=== PATIENT | female | born 2000 | race Hispanic/Latino ===

== ENCOUNTER 2023-05-01 09:31 | Day surgery (SDC) | payer OTHER ==
[2023-05-01] MEDS ORDERED: hydrALAZINE 20 MG/ML VIAL SLOW IVP PRN (10:24)
[2023-05-01] MEDS ORDERED: Lactated Ringer's 1,000 ML IV SCH (10:30)
[2023-05-01 11:02] VITALS: BMI 29.6
[2023-05-01 11:16] LABS: #Basophils 0.1 10x3/uL (0.0-0.2); #Eosinphils 0.1 10x3/uL (0.0-0.5); #Neutrophils 12.1 10x3/uL (1.5-8.4); %Basophils 0.4 % (0.0-2.0); %Eosinophils 0.5 % (0.0-6.0); %Lymphocytes 11.7 % (18.0-47.0); %Monocytes 6.6 % (0.0-10.0); Hematocrit 34.6 % (34.9-44.5); Hemoglobin 11.6 g/dL (12.0-15.5); Mean Corpuscular HGB CONC 33.5 g/dL (32.0-36.0); Mean Corpuscular Hemoglobin 31.6 pg (27.0-33.0); Mean Corpuscular Volume 94.3 fl (81.6-98.3); Mean Platelet Volume 11.6 fl (7.4-10.4); Platelet Count 245 10x3/uL (150-450); RBC Distribution Width 12.7 % (11.5-14.5); Red Blood Cell (RBC) Count 3.67 10x6/uL (3.90-5.03); White Blood Cell (WBC) Count 15.2 10x3/uL (3.5-10.5)
[2023-05-01 11:32] LABS: ALT (SGPT) 11 U/L (8-55); AST (SGOT) 17 U/L (5-34); Albumin 3.7 g/dL (3.5-5.0); Alkaline Phosphatase 122 U/L (40-110); Anion Gap 13 mmol/L (10-20); BUN (Urea Nitrogen) 9 mg/dL (7.0-18.7); Bilirubin, Total 0.4 mg/dL (0.2-1.2); Calc. Creatinine Clearance 156 mL/min (70-130); Carbon Dioxide 22 mmol/L (22-29); Chloride 105 mmol/L (98-107); Estimated GFR 128; Globulin 3.8 g/dL (2.4-3.5); Glucose 73 mg/dL (70-105); Potassium 3.6 mmol/L (3.5-5.1); Protein, Total 7.5 g/dL (6.0-8.3); Sodium 136 mmol/L (136-145)
[2023-05-01 11:39] LABS: Bilirubin Neg (Negative); Blood, Urine Negative (Negative); Clarity Slightly Cloudy (Clear); Glucose, Urine (Dipstick) Normal (Negative); Ketone, Urine Negative (Negative); Leukocyte 100 (Negative); Nitrite Negative (Negative); Protein, Urine (Dipstick) 15 mg/dl (Neg-Trace); Urobilinogen Normal mg/dL (Less than 2); pH, Urine 6.5 (5.0-9.0)
[2023-05-01 11:49] LABS: SARS-CoV-2 NAA Rapid Test Not Detected (NotDetected)
[2023-05-01] MEDS ORDERED: Lidocaine 2% Viscous Solution 10 ML, Aluminum & Magnesium Hydroxide 30 ML SSW SCH (12:00)
[2023-05-01 12:07] LABS: Bacteria/HPF 1+ HPF (None Seen); CAUTI Indications for Culture Pregnancy; RBC/HPF 0-3 HPF (0-3)
[2023-05-01 12:08] LABS: Urine Culture Reflex Yes Yes
[2023-05-01] MEDS ORDERED: Ondansetron PF 4 MG/2 ML Vial ONE (16:04)
[2023-05-01] MEDS ORDERED: Ondansetron PF 4 MG/2 ML Vial IVP SCH (16:30)
== END 2023-05-01 16:30 | disposition home or self-care (01) ==
LOC: CSHLD/OP 09:31
PROVIDERS: ATTEND Family Medicine
DX: O99.613 Diseases of the digestive system complicating pregnancy, third trimester (principal); K52.9 Noninfective gastroenteritis and colitis, unspecified; O21.2 Late vomiting of pregnancy; Z79.899 Other long term (current) drug therapy; Z3A.35 35 weeks gestation of pregnancy
CPT/HCPCS: 0241U; 76819; 80053; 81001; 85025; 87086; J2405

== ENCOUNTER 2024-06-03 09:28 | Emergency (ER) | payer OTHER ==
[2024-06-03] MEDS ORDERED: Ondansetron ODT 4 MG TAB ONE (10:01)
[2024-06-03] MEDS ORDERED: Acetaminophen 325 MG TAB ONE (10:01)
[2024-06-03 10:26] LABS: #Basophils 0.03 10x3/uL (0.0-0.2); #Eosinophils 0.06 10x3/uL (0.0-0.5); #Monocytes 0.41 10x3/uL (0.0-1.1); %Basophils 0.4 % (0.0-2.0); %Eosinophils 0.7 % (0.0-6.0); %Lymphocytes 30.8 % (18.0-47.0); %Neutrophils 62.9 % (40.0-75.0); Hematocrit 39.3 % (34.9-44.5); Hemoglobin 12.6 g/dL (12.0-15.5); Mean Corpuscular HGB CONC 32.1 g/dL (32.0-36.0); Mean Corpuscular Hemoglobin 29.7 pg (27.0-33.0); Mean Corpuscular Volume 92.7 fL (81.6-98.3); Mean Platelet Volume 10.2 fL (7.4-10.4); Platelet Count 292 10x3/uL (150-450); RBC Distribution Width 12.6 % (11.5-14.5); Red Blood Cell (RBC) Count 4.24 10x6/uL (3.90-5.03); White Blood Cell (WBC) Count 8.12 10x3/uL (3.5-10.5)
[2024-06-03 10:39] LABS: ALT (SGPT) 42 U/L (Less than 34); AST (SGOT) 26 U/L (11-34); Alkaline Phosphatase 44 U/L (40-110); Anion Gap 12 mmol/L (10-20); BUN (Urea Nitrogen) 9 mg/dL (7.0-18.7); Bilirubin, Total 0.4 mg/dL (0.3-1.2); Calc. Creatinine Clearance 0 mL/min (70-130); Calcium 8.9 mg/dL (7.8-10.44); Carbon Dioxide 22 mmol/L (22-29); Chloride 106 mmol/L (98-107); Estimated GFR 129; Globulin 3.6 g/dL (2.4-3.5); Glucose 84 mg/dL (70-105); Lipase 15 U/L (8-78); Potassium 3.7 mmol/L (3.5-5.1); Protein, Total 7.6 g/dL (6.0-8.3); Sodium 136 mmol/L (136-145)
[2024-06-03 11:08] LABS: Bilirubin Neg (Negative); Blood, Urine Negative (Negative); Glucose, Urine (Dipstick) Normal (Negative); Ketone, Urine 5 mg/dL (Negative); Leukocyte 500 (Negative); Nitrite Negative (Negative); Protein, Urine (Dipstick) 30 mg/dl (Neg-Trace)
[2024-06-03 11:10] LABS: Clarity Hazy (Clear); Pregnancy Test - Urine (BHCG) POSITIVE (Negative)
[2024-06-03 11:11] LABS: Pregu Control Background? CLEAR/WHITE (CLR/WHITE); Pregu Control Bar Appear? YES (CONTROL BAR)
[2024-06-03 11:34] LABS: Bacteria/HPF 2+ HPF (None Seen); CAUTI Indications for Culture Pelvic or flank pain; Mucous/LPF 2+ LPF (<2+); RBC/HPF None Seen HPF (0-3)
[2024-06-03 11:36] LABS: Urine Culture Reflex No No
== END 2024-06-03 12:25 | disposition home or self-care (01) ==
LOC: CSHERS 09:28
DX: O21.9 Vomiting of pregnancy, unspecified (principal); O99.891 Other specified diseases and conditions complicating pregnancy; R10.84 Generalized abdominal pain; Z3A.01 Less than 8 weeks gestation of pregnancy
CPT/HCPCS: 36415; 76801; 80053; 81001; 81025; 83690; 84702; 85025; 87086; Q0162

== ENCOUNTER 2025-03-16 16:54 | Inpatient (IN) | payer OTHER ==
[~2025-03-16 16:54] MED LIST: Bupivacaine/Epinephrine 0.25% 30 ML VIAL ONE
[2025-03-16 17:36] VITALS: BMI 33.5
[2025-03-16] MEDS ORDERED: Acetaminophen 500 MG TAB PO PRN ×2 (17:42→23:36)
[2025-03-16] MEDS ORDERED: hydrALAZINE 20 MG/ML VIAL SLOW IVP PRN (17:42)
[2025-03-16] MEDS ORDERED: Diphenoxylate HCl/Atropine Tablet PO PRN ×2 (17:42)
[2025-03-16] MEDS ORDERED: Tranexamic Acid 1,000 MG/10 ML VIAL IVP PRN (17:42)
[2025-03-16] MEDS ORDERED: Ondansetron PF 4 MG/2 ML Vial IVP PRN ×2 (17:42→19:41)
[2025-03-16] MEDS ORDERED: Methylergonovine 0.2 MG/ML VIAL IM PRN (17:42)
[2025-03-16] MEDS ORDERED: Lidocaine 1% (PF) 30 ML VIAL SC PRN (17:42)
[2025-03-16] MEDS ORDERED: Carboprost 250 MCG/ML AMP IM PRN (17:42)
[2025-03-16] MEDS ORDERED: Oxytocin 30 units/NS 500 ML 500 ML IV SCH ×2 (17:45)
[2025-03-16 18:04] LABS: Hematocrit 33.3 % (34.9-44.5); Hemoglobin 11.2 g/dL (12.0-15.5); Mean Corpuscular Hemoglobin 30.3 pg (27.0-33.0); Mean Corpuscular Volume 90.0 fL (81.6-98.3); Platelet Count 270 10x3/uL (150-450); Red Blood Cell (RBC) Count 3.70 10x6/uL (3.90-5.03); White Blood Cell (WBC) Count 10.13 10x3/uL (3.5-10.5)
[2025-03-16] MEDS: fentaNYL/Ropivacaine Epidural 100 ML ONE (19:05)
[2025-03-16 19:38] LABS: Syphilis Antibody Index 0.05 S/CO (<1.00 Non-Reactive)
[2025-03-16 19:40] LABS: HIV (1/2) Antibody/Antigen Non-Reactive (NonReactive); HIV 1/2 INDEX 0.10 S/CO (<1.00); Hep B Surf Ag - L&D Non-Reactive S/CO (NonReactive)
[2025-03-16] MEDS ORDERED: diphenhydrAMINE 50 MG/ML VIAL IVP PRN (19:41)
[2025-03-16] MEDS ORDERED: Acetaminophen 325 MG TAB PO PRN (19:41)
[2025-03-16] MEDS ORDERED: fentaNYL 2 mcg/Ropivacaine 0.2% Epidural 100 ML CADD EPIDURAL SCH (19:45)
[2025-03-16] MEDS ORDERED: Communication Order-Pharmacy FS SCH (19:45)
[2025-03-16] MEDS: Oxytocin 30 units/NS 500 ML 500 ML IV SCH (20:45)
[2025-03-17] MEDS: Ibuprofen 800 MG TAB PO PRN (01:00)
[2025-03-17] MEDS ORDERED: Ondansetron PF 4 MG/2 ML Vial IVP PRN (02:17)
[2025-03-17] MEDS ORDERED: Lanolin Ointment 7 GM TUBE TOP PRN (02:17)
[2025-03-17] MEDS ORDERED: Methylergonovine 0.2 MG/ML VIAL IM PRN (02:17)
[2025-03-17] MEDS ORDERED: Benzocaine-Menthol 82.5 ML CAN TOP PRN (02:17)
[2025-03-17] MEDS ORDERED: hydrALAZINE 20 MG/ML VIAL SLOW IVP PRN (02:17)
[2025-03-17] MEDS ORDERED: diphenhydrAMINE 25 MG CAP PO PRN (02:17)
[2025-03-17] MEDS ORDERED: Milk Of Magnesia 30 ML UDCUP PO PRN (02:17)
[2025-03-17] MEDS ORDERED: Bisacodyl 10 MG SUPP PR PRN (02:17)
[2025-03-17] MEDS ORDERED: Oxytocin 30 units/NS 500 ML 500 ML IV SCH (02:17)
[2025-03-17] MEDS: Ibuprofen 800 MG TAB PO SCH (08:07)
[2025-03-17] MEDS: Ferrous Sulfate 325 MG TAB PO SCH (08:08)
[2025-03-17] MEDS ORDERED: Measles/Mumps/Rubella 10 MCG/0.5 ML VIAL SC ONE (08:14)
[2025-03-18 08:17] VITALS: BP 102/65; TEMP 97.6
== END 2025-03-18 11:00 | disposition home or self-care (01) | DRG 807 ==
LOC: CSHLD/OP 16:54 → CSHLD 18:11 → CSHPP 03-17 01:49
PROVIDERS: ADMIT Obstetrics & Gynecology; ATTEND Obstetrics & Gynecology
PROC: 10E0XZZ Delivery of Products of Conception, External Approach (ICD-10-PCS; principal; 2025-03-16)
DX: O99.02 Anemia complicating childbirth (principal); Z37.0 Single live birth; Z3A.37 37 weeks gestation of pregnancy; Z86.19 Personal history of other infectious and parasitic diseases
CPT/HCPCS: 36415; 51702; 85027; 86780; 86850; 86900; 86901; 87340; 87389; 99285; J2590